=== PATIENT | female | born 1995 | race African-American/Black ===

== ENCOUNTER 2018-10-08 13:43 | Observation (INO) | payer MEDICARE, MEDICAID ==
[~2018-10-08] VITALS: Ht 154.9 cm; Wt 102.5 kg
[~2018-10-08 13:43] MED LIST: ALBU2.5V13 IH
[2018-10-08 15:11] LABS: BASOPHILS % 0.4 % (0.0-2.0); HEMATOCRIT. 32.8 % (36.0-48.0); MEAN CORPUSCULAR HEMOGLOBIN 27.2 pg (28.0-32.0); MEAN CORPUSCULAR VOLUME 81.5 fL (81.0-99.0); MEAN PLATELET VOLUME 8.4 fl (7.4-10.4); MONOCYTES % 11.7 % (2.0-8.0); NEUTROPHILS % 64.9 % (40.0-76.0); PLATELET 208 x1000/uL (130-400); RED BLOOD CELL COUNT 4.02 mill/uL (4.2-5.4); RED CELL DISTRIBUTION WIDTH 14.5 % (11.6-14.6)
[2018-10-08 15:13] LABS: CLARITY URINE CLOUDY (CLEAR); COLOR URINE YELLOW (YELLOW); KETONES URINE NEGATIVE (NEGATIVE); LEUKOCYTE ESTERASE URINE NEGATIVE (NEGATIVE); NITRITE URINE NEGATIVE (NEGATIVE); OCCULT BLOOD URINE NEGATIVE (NEGATIVE); PH URINE 5.5 (4.5-8.0); PROTEIN URINE NEGATIVE (NEGATIVE); SPECIFIC GRAVITY URINE 1.005 (1.005-1.030); UROBILINOGEN URINE 0.2 E.U./dL (0.2-1.0)
[2018-10-08 15:16] LABS: CHLORIDE 113 mEq/L (98-107)
[2018-10-08 15:21] LABS: D-DIMER 2.66 mg/L FEU (<0.50); INR 0.9; PARTIAL THROMBOPLASTIN TIME 27.9 sec (23.4-31.0); PROTHROMBIN TIME 9.2 sec (9.6-11.0)
== END 2018-10-08 16:35 | disposition home or self-care (01) ==
LOC: 8 EST LDRP 13:43
PROVIDERS: ADMIT Obstetrics & Gynecology; ATTEND Obstetrics & Gynecology
DX: O62.9 Abnormality of forces of labor, unspecified (principal); Z3A.37 37 weeks gestation of pregnancy
CPT/HCPCS: 36415; 80053; 81003; 84550; 85025; 85379; 85384; 85610; 85730; 99281; G0378

== ENCOUNTER 2018-10-10 09:55 | Inpatient (IN) | payer MEDICARE, MEDICAID ==
[~2018-10-10] VITALS: Ht 154.9 cm; Wt 102.5 kg
[2018-10-10] MEDS: LACTATED RINGERS 1,000 ML IV SCH ×2 (11:16→21:31)
[2018-10-10 11:41] LABS: CLARITY URINE CLEAR (CLEAR); COLOR URINE YELLOW (YELLOW); KETONES URINE NEGATIVE (NEGATIVE); LEUKOCYTE ESTERASE URINE NEGATIVE (NEGATIVE); NITRITE URINE NEGATIVE (NEGATIVE); OCCULT BLOOD URINE NEGATIVE (NEGATIVE); PH URINE 6.5 (4.5-8.0); PROTEIN URINE NEGATIVE (NEGATIVE); SPECIFIC GRAVITY URINE 1.004 (1.005-1.030); UROBILINOGEN URINE 0.2 E.U./dL (0.2-1.0)
[2018-10-10 11:42] LABS: BASOPHILS % 0.3 % (0.0-2.0); EOSINOPHILS % 0.7 % (0.0-5.0); HEMATOCRIT. 32.8 % (36.0-48.0); HEMOGLOBIN. 11.2 g/dL (12.0-16.0); MEAN CORPUSCULAR HEMOGLOBIN 27.7 pg (28.0-32.0); MEAN CORPUSCULAR VOLUME 81.1 fL (81.0-99.0); MEAN PLATELET VOLUME 8.5 fl (7.4-10.4); MONOCYTES % 9.4 % (2.0-8.0); NEUTROPHILS % 76.6 % (40.0-76.0); PLATELET 194 x1000/uL (130-400); RED BLOOD CELL COUNT 4.04 mill/uL (4.2-5.4); RED CELL DISTRIBUTION WIDTH 14.7 % (11.6-14.6)
[2018-10-10 11:51] LABS: CHLORIDE 110 mEq/L (98-107)
[2018-10-10] MEDS ORDERED: LABETALOL HCL 5MG/ML VIAL 20ML IV PRN ×3 (12:00)
[2018-10-10] MEDS ORDERED: HYDRALAZINE 20MG/ML VIAL IV PRN (12:00)
[2018-10-10 12:01] LABS: D-DIMER 4.47 mg/L FEU (<0.50); INR 0.9; PARTIAL THROMBOPLASTIN TIME 28.2 sec (23.4-31.0)
[2018-10-10] MEDS ORDERED: DEXT 5%/LR + PITOCIN 20UNITS/L 1,000 ML IV SCH (16:34)
[2018-10-10] MEDS ORDERED: MINERAL OIL 30ML BOTTLE PO NR (16:45)
[2018-10-10] MEDS ORDERED: NALOXONE HCL 0.4 MG/ML 1ML VIAL IM PRN (16:45)
[2018-10-10] MEDS ORDERED: METHYLERGONOVINE MALEATE 0.2 MG/ML IM PRN (16:45)
[2018-10-10] MEDS ORDERED: BUTORPHANOL TARTRATE 2 MG/ML VIAL IV PRN (16:45)
[2018-10-10] MEDS ORDERED: LIDOCAINE HCL 1% 20ML VIAL (Pyxis) INJ INFIL PRN (16:45)
[2018-10-10] MEDS ORDERED: MISOPROSTOL 100MCG TABLET VG PRN (16:45)
[2018-10-10] MEDS ORDERED: CARBOPROST TROMETHAMINE 250 MCG/ML AMPUL IM PRN (16:45)
[2018-10-10] MEDS: MISOPROSTOL 100MCG TABLET VG PRN ×2 (17:10→21:10)
[2018-10-10 17:56] LABS: HEPATITIS B SURFACE ANTIGEN NEGATIVE
[2018-10-10] MEDS ORDERED: PENICILLIN G POTASSIUM 5 MMU in DEXT 5% WATER 100 ML IV SCH (18:00)
[2018-10-10] MEDS: ONDANSETRON HCL 4MG/2ML INJ IV PRN (19:36)
[2018-10-10 20:05] LABS: *AMPHETAMINES SCREEN URINE NEGATIVE (NEGATIVE); *BARBITURATES SCREEN URINE NEGATIVE (NEGATIVE); *BENZODIAZEPINES SCREEN URINE NEGATIVE (NEGATIVE); *COCAINE SCREEN URINE NEGATIVE (NEGATIVE)
[2018-10-10 20:06] LABS: CANNABINOID URINE SCREEN NEGATIVE (NEGATIVE); METHADONE URINE SCREEN NEGATIVE (NEGATIVE); OPIATES URINE SCREEN NEGATIVE (NEGATIVE); PHENCYCLIDINE URINE SCREEN NEGATIVE (NEGATIVE)
[2018-10-10] MEDS ORDERED: CLOTRIMAZOLE 1% VAGINAL CREAM 45GM VG SCH (21:00)
[2018-10-10] MEDS ORDERED: MICONAZOLE NITRATE 100MG VAG SUPP VG SCH (21:00)
[2018-10-11] MEDS: BUTORPHANOL TARTRATE 2 MG/ML VIAL IV PRN ×2 (01:17→05:27)
[2018-10-11 09:14] LABS: CHLORIDE 110 mEq/L (98-107)
[2018-10-11 09:25] LABS: D-DIMER 14.58 mg/L FEU (<0.50); INR 0.9; PARTIAL THROMBOPLASTIN TIME 29.1 sec (23.4-31.0); PROTHROMBIN TIME 9.6 sec (9.6-11.0)
[2018-10-11] MEDS: LACTATED RINGERS 1,000 ML IV SCH ×2 (15:07→23:42)
[2018-10-12] MEDS: BUTORPHANOL TARTRATE 2 MG/ML VIAL IV PRN ×2 (05:06→10:22)
[2018-10-12] MEDS: PENICILLIN G POTASSIUM 2.5 MMU in DEXTROSE 5% WATER 50 ML IV SCH ×3 (10:00→17:45)
[2018-10-12] MEDS: ONDANSETRON HCL 4MG/2ML INJ IV PRN (10:23)
[2018-10-12] MEDS: LACTATED RINGERS 1,000 ML IV SCH ×2 (13:31→17:47)
[2018-10-12] MEDS ORDERED: HYDROMORPHONE HCL/PF 2MG/ML CPJ IV PRN (14:00)
[2018-10-12] MEDS ORDERED: ONDANSETRON HCL 4MG/2ML INJ IV PRN (14:00)
[2018-10-12] MEDS ORDERED: LABETALOL 5MG/ML SYR 20 MG/4 ML SYRINGE IV PRN (14:00)
[2018-10-12] MEDS ORDERED: ROPIVACAINE HCL 2MG/ML (0.2%) 200ML BOTTLE IR ONE (14:00)
[2018-10-12] MEDS ORDERED: MEPERIDINE HCL/PF 25MG/ML CPJ IV PRN (14:00)
[2018-10-12] MEDS ORDERED: ROPIVACAINE HCL/PF EPIDURAL 200 ML EPI PRN (14:15)
[2018-10-12] MEDS ORDERED: FENTANYL CITRATE/PF 50MCG/ML 2ML VIAL ONE (14:21)
[2018-10-12] MEDS ORDERED: LIDOCAINE HCL 1% 20ML VIAL (Pyxis) INJ ONE (22:45)
[2018-10-12] MEDS ORDERED: MINERAL OIL 30ML BOTTLE PO NR (23:00)
[2018-10-13] MEDS ORDERED: DIPHENHYDRAMINE 25MG CAPSULE PO PRN (00:45)
[2018-10-13] MEDS ORDERED: IBUPROFEN 400MG TABLET PO PRN (00:45)
[2018-10-13] MEDS ORDERED: LANOLIN OINT 7GM TUBE TOP PRN (00:45)
[2018-10-13] MEDS ORDERED: RHO(D) IMMUNE GLOBULIN 300 MCG/SYR IM PRN (00:45)
[2018-10-13] MEDS ORDERED: DEXT 5%/LR + PITOCIN 20UNITS/L 1,000 ML IV SCH (01:00)
[2018-10-13 01:30] VITALS: BP 146/83
[2018-10-13] MEDS: IBUPROFEN 800MG TABLET PO PRN ×2 (02:16→14:12)
[2018-10-13 02:30] VITALS: BP 148/88
[2018-10-13 08:00] VITALS: BP 128/73
[2018-10-13 13:15] LABS: BASOPHILS % 0.2 % (0.0-2.0); HEMATOCRIT. 21.8 % (36.0-48.0); HEMOGLOBIN. 7.3 g/dL (12.0-16.0); LYMPHOCYTES % 13.3 % (20.0-50.0); MEAN CORPUSCULAR HEMOGLOBIN 26.9 pg (28.0-32.0); MEAN CORPUSCULAR VOLUME 80.7 fL (81.0-99.0); MEAN PLATELET VOLUME 8.9 fl (7.4-10.4); MONOCYTES % 10.7 % (2.0-8.0); NEUTROPHILS % 74.8 % (40.0-76.0); PLATELET 76 x1000/uL (130-400); RED CELL DISTRIBUTION WIDTH 14.7 % (11.6-14.6)
[2018-10-13] MEDS: PRENATAL VIT/FE FUMARATE/FA TABLET PO SCH (14:11)
[2018-10-13] MEDS ORDERED: BENZOCAINE/LANOLIN/ALOE VERA SPRAY TOP PRN (14:30)
[2018-10-13 22:00] VITALS: BP 130/83
[2018-10-14] MEDS: IBUPROFEN 800MG TABLET PO PRN ×2 (00:30→08:16)
[2018-10-14 06:00] VITALS: BP 133/81
[2018-10-14 07:15] VITALS: BP 134/83
[2018-10-14 07:39] LABS: BASOPHILS % 0.1 % (0.0-2.0); EOSINOPHILS % 2.5 % (0.0-5.0); MEAN CORPUSCULAR HEMOGLOBIN 27.3 pg (28.0-32.0); MEAN CORPUSCULAR VOLUME 81.2 fL (81.0-99.0); MEAN PLATELET VOLUME 9.3 fl (7.4-10.4); NEUTROPHILS % 67.4 % (40.0-76.0); PLATELET 89 x1000/uL (130-400); RED BLOOD CELL COUNT 2.33 mill/uL (4.2-5.4); RED CELL DISTRIBUTION WIDTH 14.8 % (11.6-14.6)
[2018-10-14 08:15] LABS: HEMATOCRIT. 18.9 % (36.0-48.0); HEMOGLOBIN. 6.4 g/dL (12.0-16.0)
[2018-10-14] MEDS: PRENATAL VIT/FE FUMARATE/FA TABLET PO SCH (08:17)
[2018-10-14] MEDS ORDERED: TETANUS, DIPHTHERIA, PERTUSSIS VAC/PF 0.5ML (>7YR OLD) IM ONE (10:00)
== END 2018-10-14 11:35 | disposition home or self-care (01) | DRG 807 ==
LOC: OBSVTOIN 09:55 → 8 EST LDRP 09:55 → 8EST 10-13 01:10
PROVIDERS: ADMIT Obstetrics & Gynecology; ATTEND Obstetrics & Gynecology
PROC: 10E0XZZ Delivery of Products of Conception, External Approach (ICD-10-PCS; principal; 2018-10-12)
PROC: 0W8NXZZ Division of Female Perineum, External Approach (ICD-10-PCS; 2018-10-12)
PROC: 3E0R3BZ Introduction of Anesthetic Agent into Spinal Canal, Percutaneous Approach (ICD-10-PCS; 2018-10-12)
PROC: 00HU33Z Insertion of Infusion Device into Spinal Canal, Percutaneous Approach (ICD-10-PCS; 2018-10-12)
DX: O13.4 Gestational [pregnancy-induced] hypertension without significant proteinuria, complicating childbirth (principal); Z37.0 Single live birth; D64.9 Anemia, unspecified; E66.9 Obesity, unspecified; O99.214 Obesity complicating childbirth; O90.81 Anemia of the puerperium; Z3A.37 37 weeks gestation of pregnancy
CPT/HCPCS: 36415; 76815; 76818; 80305; 84550; 85379; 85384; 86592; 86703; 86762; 86850; 86900; 87340; 99281; G0378; J0595; J2405; J2540; J2590; J2795; J3010; J3490; J7060